=== PATIENT | female | born 1995 | race African-American/Black ===

== ENCOUNTER 2017-01-09 23:18 | Emergency (ER) | payer OTHER ==
[~2017-01-09] VITALS: Ht 167.6 cm; Wt 48.0 kg
[2017-01-09 23:20] VITALS: BP 118/65; PULSE 71; RESP 16; TEMP 98.7; O2SAT 99
--- NOTE | 2017-01-10 00:23 | PD ---
HPI Chief Complaint: GI Complaint Time Seen by Provider: 00:23 Travel History International Travel<30 days: No Contact w/Intl Traveler<30days: No Traveled to known affect area: No History of Present Illness HPI 21-year-old female came to the emergency room with history of lightheadedness and dizziness earlier at school today. Patient is 10 weeks . She says she has a lot of classes and studies. She is trying to keep herself hydrated and eat well but does not think she has done a good job so far. Patient does not have an OB yet. She is from [place] and plans to go back there where she'll get an OB in 2 weeks. No history of cramps or spotting. She is otherwise a healthy person. Patient is A0. Vital signs were stable in ER. [facility] Past Medical History Narrative Medical List of her past medical, surgical, social and family history was reviewed from the nursing note. ?: Social History Tobacco Use: No Allergies-Medications (Allergen,Severity, Reaction): Coded Allergies: No Known Allergies (Unverified , 01/09/17) Comments No known drug allergies. Reported Meds & Prescriptions Reported Meds & Active Scripts Active Macrobid (Nitrofurantoin Monoh/Nitrofur Macro) 100 Mg Cap 100 Mg PO BID 10 Days Narrative Medication List of her home medications reviewed from the nursing note. Review of Systems Except as stated in HPI: all other systems reviewed are Neg Physical Exam Narrative GENERAL: Awake, alert, no obvious distress SKIN: Focused skin assessment warm/dry. HEAD: Atraumatic. Normocephalic. EYES: Pupils equal and round. No scleral icterus. No injection or drainage. ENT: No nasal bleeding or discharge. Mucous membranes pink and moist. NECK: Trachea midline. No JVD. CARDIOVASCULAR: Regular rate and rhythm. No murmur appreciated. RESPIRATORY: No accessory muscle use. Clear to auscultation. Breath sounds equal bilaterally. GASTROINTESTINAL: Abdomen soft, non-tender, nondistended. Hepatic and splenic margins not palpable. MUSCULOSKELETAL: No obvious deformities. No clubbing. No cyanosis. No edema. NEUROLOGICAL: Awake and alert. No obvious cranial nerve deficits. Motor grossly within normal limits. Normal speech. PSYCHIATRIC: Appropriate mood and affect; insight and judgment normal. Data Data Last Documented VS Orders Urinalysis - C+S If Indicated (01/10/17 00:45) Ed Urine Pregnancytest Poc (01/10/17 00:45) Blood Glucose (01/10/17 00:45) Urine Culture (01/10/17 01:55) Nitrofurantoin Monohyd Macrocr (Macrobid (01/10/17 02:45) Labs Laboratory Tests Test 01/10/17 01:55 Urine Color YELLOW Urine Turbidity HAZY Urine pH 6.0 Urine Specific [place] 1.029 Urine Protein TRACE mg/dL Urine Glucose (UA) NEG mg/dL Urine Ketones NEG mg/dL Urine Occult Blood NEG Urine Nitrite NEG Urine Bilirubin NEG Urine Urobilinogen 2.0 MG/DL Urine Leukocyte Esterase NEG Urine RBC 1 /hpf Urine WBC 8 /hpf Urine Squamous Epithelial 13 /hpf Cells Urine Bacteria FEW /hpf Urine Hyaline Casts 2 /lpf Urine Mucus MOD /lpf Microscopic Urinalysis Comment CULTURE INDICATED MDM Medical Decision Making Medical Screen Exam Complete: Yes Emergency Medical Condition: Yes Medical Record Reviewed: Yes Differential Diagnosis First trimester , UTI, dehydration Narrative Course 2:38 AM patient has been drinking some juice out of the vending machine. UA is back and suggestive of UTI. I've given her dose of Macrobid. Patient will be discharged home on Macrobid prescription as well. I have strongly advised her to keep her hydrated, get some good rest and eat well. Procedures EKG Prior to Arrival: No Diagnosis Primary Impression: First trimester Additional Impression: UTI (urinary tract infection) Qualified Code: N39.0 - Urinary tract infection without hematuria, site unspecified Referrals: Primary Care Physician 2 days Additional Instructions: Please get and OB doctor for your as soon as possible. Drink lots of fluid, plenty of sleep and good food for yourselves and the baby during the . Return to the ER if the condition worsens or any other new concerns. Take the medication as per the prescription direction. Med/Other Pt SpecificInfo: Prescription(s) given Scripts Nitrofurantoin Monohydrate Macrocrystals (Macrobid)100 Mg [id number] Mg PO BID 10 Days Ref 0 Prov:Whitney Rehman MD 01/10/17 Disposition: 01 DISCHARGE HOME Condition: Stable Whitney Rehman MD Jan 10, 2017 00:23 . Return to the ER if the condition worsens or any other new concerns. Take the medication as per the prescription direction. Med/Other Pt SpecificInfo: Prescription(s) given Scripts Nitrofurantoin Monohydrate Macrocrystals (Macrobid)100 Mg [id number] Mg PO BID 10 Days Ref 0 Prov:Whitney Rehman MD 01/10/17 Disposition: 01 DISCHARGE HOME Condition: Stable Whitney Rehman MD Jan 10, 2017 00:23
[2017-01-10 00:52] VITALS: BP 120/76
[2017-01-10 02:25] LABS: BACTERIA, URINE FEW /hpf; BLOOD, URINE NEG (NEG); COMMENT (UR) CULTURE INDICATED; CULTURE IF INDICATED CULTURE INDICATED; GLUCOSE,URINE NEG (NEG); HYALINE CAST, URINE 2 /lpf (RARE); KETONE, URINE NEG (NEG); MUCUS URINE MOD /lpf (OCC); NITRITE,URINE NEG (NEG); SQUAMOUS EPITHELIAL CELL URINE 13 /hpf (0-5); URINE COLOR YELLOW (YELLW/STRAW)
[2017-01-10] MEDS ORDERED: MACR100C2 PO (02:40)
[2017-01-10] MEDS ORDERED: NITROFURANTOIN MONOHYD MACROCR 100 MG CAP PO ONE (02:45)
== END 2017-01-10 03:01 | disposition home or self-care (01) ==
LOC: NEPC 23:18
DX: O23.41 Unspecified infection of urinary tract in pregnancy, first trimester (principal); B96.89 Other specified bacterial agents as the cause of diseases classified elsewhere; Z3A.10 10 weeks gestation of pregnancy
CPT/HCPCS: 81001; 84703; 87086; 99284